=== PATIENT | male | born 1960 | race Caucasian/White ===

== ENCOUNTER 2020-04-16 06:22 | Emergency (ER) | payer BC ==
--- NOTE | 2020-04-16 06:29 | ER Document Report ---
ED General - General Stated Complaint: DIZZINESS,CRAMPING Time Seen by Provider: 04/16/20 06:27 Primary Care Provider: MATILDE TRUONG MD [Primary Care Provider] - Follow up as needed Cannot obtain history due to: Uncooperative Notes: 59-year-old male with diabetes hypertension presents with leg cramping and diz ziness. Leg cramping is bilateral calf like they are "knotting up" worse when he stands. Is been going on since last night. He also feels dizzy when standing lightheaded like he might pass out only when standing. He has no vertigo nausea vomiting chest pain shortness of breath rashes fevers or COVID symptoms. He does take several combo antihypertensive and diuretic pills. Denies changes in dosing. EMS vitals were normal. TRAVEL OUTSIDE OF THE [place] IN LAST 30 DAYS: No - Related Data Allergies/Adverse Reactions: No Known Allergies Allergy (Verified 04/16/20 06:26) Past Medical History - General Information source: Patient - Social History Smoking Status: Unknown if Ever Smoked Family History: Reviewed & Not Pertinent - Past Medical History Cardiac Medical History: Reports: Hx Hypercholesterolemia Endocrine Medical History: Reports: Hx Diabetes Mellitus Type 2 - Immunizations Hx Diphtheria, Pertussis, Tetanus Vaccination: Yes Review of Systems - Review of Systems Notes: REVIEW OF SYSTEMS GEN: Denies fever, chills, weight loss ENT: Denies sore throat, nasal discharge, ear pain EYES: Denies blurry vision, eye pain, discharge CV: Denies chest pain, palpitations, edema RESP: Denies cough, shortness of breath, wheezing GI: Denies abdominal pain, nausea, vomiting, diarrhea MSK: Cramps SKIN: Denies rash, skin lesions LYMPH: Denies swollen glands/lymph nodes NEURO: D dizziness s PSYCH: Denies depression, suicidal or homicidal ideation PHYSICAL EXAMINATION General: No acute distress, well-nourished Head: Atraumatic, normocephalic ENT: Mouth normal, oropharynx moist, no exudates or tonsillar enlargement Eyes: Conjunctiva normal, pupils equal, lids normal Neck: No JVD, supple, no guarding CVS: Normal rate, regular rhythm, no murmurs Resp: No resp distress, equal and normal breath sounds bilaterally GI: Nondistended, soft, no tenderness to palpation, no rebound or guarding Ext: Legs nontender. Left calf feels better when I squeeze it. There is no no popliteal tenderness or masses no edema. Distal pulses. Back: No CVA or midline TTP Skin: No rash, warm Lymphatic: No lymphadeopathy noted Neuro: Awake, alert. Face symmetric. GCS 15. No nystagmus equal coordination with both upper lower extremities 5-5 strength and sensation in upper and lower extremities bilaterally. Physical Exam - Vital signs Vitals: Temp Pulse Resp BP Pulse Ox 97.7 F 70 16 172/99 H 98 04/16/20 06:23 04/16/20 06:23 04/16/20 06:23 04/16/20 06:23 04/16/20 06:23 Course - Re-evaluation Re-evalutation: 04/16/20 07:51 Patient presents with bilateral leg cramps, resolved, and postural dizziness also resolved. He is on multiple diuretics and this likely reflects combination of orthostasis volume depletion plus or minus hypokalemia and autonomic neuropathy from diabetes I did a full neuro exam subsequently. He has no nystagmus has full extraocular movements symmetric face normal strength and sensation in all 4 extremities and can walk without significant ataxia. His labs are normal. He does complain of intermittent dizziness still, but on repeat exam there is no significant neuro finding which would worry me for stroke or TIA, and he is stable for discharge to follow-up with his primary care. I have discussed with the patient there likely diagnosis, aftercare plan, follow-up plans and my usual and customary return precautions. They verbalized understanding of this. - Vital Signs Vital signs: Temp Pulse Resp BP Pulse Ox 97.7 F 70 15 134/79 H 100 04/16/20 06:24 04/16/20 06:23 04/16/20 07:01 04/16/20 07:01 04/16/20 07:01 - Laboratory Result Diagrams: 04/16/20 06:47 04/16/20 06:47 Laboratory results interpreted by me: 04/16/20 04/16/20 04/16/20 06:47 06:47 06:47 Hgb 13.4 L RDW 14.1 H Seg Neutrophils % 79.1 H Sodium 135.8 L Glucose 164 H Alkaline Phosphatase 35 L Urine Protein 30 H Urine Glucose (UA) >=500 H - EKG Interpretation by Me EKG shows normal: Sinus rhythm Rate: Normal Rhythm: NSR When compared to previous EKG there are: Previous EKG unavailable Additional EKG results interpreted by me: 04/16/20 07:01 QTC borderline prolonged at 480. No ST or T wave changes. No signs of hyperkalemia or ischemia. Discharge - Discharge Clinical Impression: Leg cramps Condition: Good Disposition: HOME, SELF-CARE Instructions: Dizziness ([facility]), Leg Cramps ([facility]) Referrals: MATILDE TRUONG MD [Primary Care Provider] - Follow up as needed
[2020-04-16 07:15] LABS: ABSOLUTE EOSINOPHILS # (AUTO) 0.1 10^3/uL (0.0-0.6); ABSOLUTE LYMPHOCYTES (AUTO) 1.2 10^3/uL (0.5-4.7); ABSOLUTE MONOCYTES (AUTO) 0.3 10^3/uL (0.1-1.4); ABSOLUTE NEUT (AUTO) 6.3 10^3/uL (1.7-8.2); BASOPHILS % (AUTO) 0.6 % (0-2); HEMATOCRIT 38.3 % (37.9-51.0); HEMOGLOBIN 13.4 g/dL (13.5-17.0); LYMPHOCYTES % (AUTO) 15.3 % (13-45); MEAN CORPUSCULAR HEMOGLOBIN 29.5 pg (27.0-33.4); MEAN CORPUSCULAR VOLUME 84 fl (80-97); PLATELET COUNT 221 10^3/uL (150-450); RED BLOOD COUNT 4.54 10^6/uL (4.35-5.55); RED CELL DISTRIBUTION WIDTH 14.1 % (11.5-14.0); SEGMENTED NEUTROPHILS % (AUTO) 79.1 % (42-78); TOTAL CELLS COUNTED % (AUTO) 100 %
[2020-04-16 07:23] LABS: APPEARANCE,URINE CLEAR; BILIRUBIN,URINE NEGATIVE (NEGATIVE); COLOR,URINE STRAW; GLUCOSE, URINE >=500 mg/dL (NEGATIVE); KETONES,URINE NEGATIVE (NEGATIVE); LEUKOCYTE ESTERASE,URINE NEGATIVE (NEGATIVE); NITRITE,URINE NEGATIVE (NEGATIVE); PROTEIN,URINE 30 mg/dL (NEGATIVE); URINE SPECIFIC GRAVITY 1.011; UROBILINOGEN,URINE NEGATIVE mg/dL (<2.0)
[2020-04-16 07:24] LABS: ALKALINE PHOSPHATASE 35 U/L (38-126); ANION GAP 12 (5-19); ASPARTATE AMINO TRANSFERASE 33 U/L (17-59); BILIRUBIN,TOTAL 0.6 mg/dL (0.2-1.3); BLOOD UREA NITROGEN 19 mg/dL (7-20); CALCIUM 9.5 mg/dL (8.4-10.2); CARBON DIOXIDE 25 mmol/L (22-30); CHLORIDE 99 mmol/L (98-107); GLUCOSE 164 mg/dL (75-110); POTASSIUM 3.7 mmol/L (3.6-5.0); TOTAL PROTEIN 8.1 g/dL (6.3-8.2)
--- NOTE | 2020-04-16 07:52 | EKG REPORT ---
SEVERITY:- BORDERLINE ECG - SINUS RHYTHM BORDERLINE PROLONGED QT INTERVAL : Confirmed by: Juan Pablo Johnson MD 16-Apr-2020 07:51:41
[2020-04-16 07:56] VITALS: BP 131/82
== END 2020-04-16 08:13 | disposition home or self-care (01) ==
LOC: ER 06:22
DX: R25.2 Cramp and spasm (principal); R42 Dizziness and giddiness; E11.9 Type 2 diabetes mellitus without complications; I10 Essential (primary) hypertension; Z20.828 Contact with and (suspected) exposure to other viral communicable diseases
CPT/HCPCS: 93005; 99284; 36415; 85025; 87635; 80053; 81001; 93010; C9803